=== PATIENT | female | born 1955 | race Caucasian/White ===

== ENCOUNTER 2016-11-20 22:37 | Emergency (ER) | payer BC, SELFPAY ==
[~2016-11-20] VITALS: Ht 154.9 cm; Wt 51.0 kg
[2016-11-21 00:12] VITALS: BP 122/68
== END 2016-11-21 00:14 | disposition home or self-care (01) ==
LOC: ED 11-21 00:08
DX: R07.89 Other chest pain (principal); F41.1 Generalized anxiety disorder; F17.210 Nicotine dependence, cigarettes, uncomplicated
CPT/HCPCS: 93005; 99283

== ENCOUNTER → 2017-07-27 | Outpatient (CLI) | payer BC | END | disposition home or self-care (01) | LOC: CFH 09:44 | PROVIDERS: ATTEND Genetic Counselor, MS | DX: Z12.2 Encounter for screening for malignant neoplasm of respiratory organs (principal); R91.1 Solitary pulmonary nodule; F17.210 Nicotine dependence, cigarettes, uncomplicated | CPT/HCPCS: G0297 ==

== ENCOUNTER 2018-08-14 20:26 | Observation (INO) | payer OTHER ==
[~2018-08-14] VITALS: Ht 152.4 cm; Wt 49.5 kg
--- NOTE | 2018-08-14 20:39 | NUR ---
PT BIB [facility] WITH C/O CHEST PAIN SINCE 7 PM, WITH SOB WHILE SITTING ON COUCH WATCHING TV,PT TOOK [facility] 324 AT HOME INSTRUCTED BY CHERYLE KEARNS CP AT THIS TIME
--- NOTE | 2018-08-14 20:51 | NUR ---
pt reports heavy cp at thids time pa at bed side ekg in process
[2018-08-14] MEDS ORDERED: MAALOX/HYOSCYAMINE/LIDOCAINE 45 ML BTL PO ONE (21:00)
[2018-08-14] MEDS ORDERED: ONDANSETRON 2MG/ML, 2ML IVPush ONE (21:00)
[2018-08-14] MEDS ORDERED: NITROGLYCERIN OINT 2%, 1GM TP ONE ×2 (21:00→21:14)
[2018-08-14 21:06] LABS: BASOPHILS # (AUTO) 0.06 x10^3/uL (0-0.1); BASOPHILS % (AUTO) 1 % (0-1); EOSINOPHILS # (AUTO) 0.06 x10^3/uL (0-0.4); EOSINOPHILS % (AUTO) 1 % (1-7); LYMPHOCYTES % (AUTO) 35 % (22-44); MD NO; MEAN CORPUSCULAR HEMOGLOBIN 31.7 pg (27.0-34.8); MEAN CORPUSCULAR HGB CONC 34.8 g/dL (32.4-35.8); MEAN CORPUSCULAR VOLUME 91.2 fL (80-100); MEAN PLATELET VOLUME 7.2 fL (7.4-10.4); MONOCYTES # (AUTO) 0.47 x10^3/uL (0.2-0.8); MONOCYTES % (AUTO) 7 % (2-9); NEUTROPHILS # (AUTO) 4.11 x10^3/uL (1.8-6.8); NEUTROPHILS % (AUTO) 57 % (42-75); PLATELET COUNT 189 x10^3/uL (130-400); RED BLOOD COUNT 4.53 x10^6/uL (3.82-5.3); RED CELL DISTRIBUTION WIDTH 12.8 % (9.6-15.2)
[2018-08-14] MEDS ORDERED: ONDANSETRON 2MG/ML, 2ML ONE (21:14)
[2018-08-14] MEDS ORDERED: MORPHINE SULFATE 4 MG/ML, 1ML ONE (21:14)
[2018-08-14] MEDS ORDERED: MAALOX/HYOSCYAMINE/LIDOCAINE 45 ML BTL ONE (21:14)
[2018-08-14] MEDS: MORPHINE SULFATE 4 MG/ML, 1ML IVPush PRN ×2 (21:17→21:18)
[2018-08-14 21:18] LABS: ALANINE AMINOTRANSFERASE 18 U/L (12-78); ALBUMIN 3.5 g/dL (3.4-5.0); ANION GAP 8 mmol/L (5-15); CALCIUM 8.4 mg/dL (8.5-10.1); CHLORIDE 110 mmol/L (98-107); CREATININE 0.91 mg/dL (0.55-1.02)
[2018-08-14 21:23] LABS: ALKALINE PHOSPHATASE 95 U/L (45-117); BILIRUBIN,TOTAL 0.2 mg/dL (0.2-1.0); TOTAL PROTEIN 6.6 g/dL (6.4-8.2); TROPONIN I < 0.015 ng/mL (0.000-0.045)
--- NOTE | 2018-08-14 21:26 | NUR ---
medicated per md order
--- NOTE | 2018-08-14 21:43 | NUR ---
REPORT FROM ROMY PAREKH.
[2018-08-14] MEDS ORDERED: SODIUM CHLORIDE 0.9% 1,000 ML IV SCH (22:25)
[2018-08-14] MEDS ORDERED: NITROGLYCERIN 0.4 MG BOTTLE (25 TABS) SL PRN (22:30)
[2018-08-14] MEDS ORDERED: hydrALAzine 20 MG/ML, 1ML IVPush PRN (22:30)
[2018-08-14] MEDS ORDERED: ACETAMINOPHEN 325 MG TABLET PO PRN (22:30)
--- NOTE | 2018-08-14 22:38 | NUR ---
PT TO RESTROOM WITH STEADY GAIT AND BACK TO BED. PT SO AT BEDSIDE. PT AWAITING ROOM ASSIGNMENT. NO S/SX OF DISCOMFORT NOTED. PT CONTINUES ON CARDIAC AND VS MONITORING. NO DISTRESS NOTED. CALL LIGHT IN REACH.
[2018-08-14] MEDS ORDERED: FIOROCET (23:24)
[2018-08-14] MEDS ORDERED: SERT100T PO (23:24)
[2018-08-14] MEDS ORDERED: ESOM20CA PO (23:24)
[2018-08-14] MEDS ORDERED: ALPR-475 PO (23:24)
--- NOTE | 2018-08-14 23:24 | NUR ---
PT RESTING IN BED, SITTING UP AND WATCHING TV. PT CONVERSES WELL, PLEASANT AND COOPERATIVE. VSS. PT AWAITING ROOM ASSIGNMENT. CALL LIGHT IN REACH.
[2018-08-14 23:29] LABS: TROPONIN I < 0.015 ng/mL (0.000-0.045)
--- NOTE | 2018-08-14 23:34 | NUR ---
REPORT TO ELKIN PAREKH. PT TO GO TO ROOM.
[2018-08-15 00:21] VITALS: BP 122/70
[2018-08-15] MEDS: MORPHINE SULFATE 4 MG/ML, 1ML IVPush PRN (00:27)
[2018-08-15 01:06] VITALS: BP 122/70
[2018-08-15 04:35] VITALS: BP 122/70
[2018-08-15 06:23] LABS: TROPONIN I < 0.015 ng/mL (0.000-0.045)
[2018-08-15] MEDS ORDERED: PANTOPROZOLE 40MG TABLET PO SCH (07:30)
[2018-08-15] MEDS ORDERED: REGADENOSON 0.4 MG/5 ML SYRINGE ONE (08:43)
[2018-08-15 08:57] VITALS: BP 115/67
[2018-08-15] MEDS ORDERED: SERTRALINE 100MG TABLET PO SCH (09:00)
[2018-08-15] MEDS ORDERED: BUTALB/APAP/CAFFEINE 50MG/325MG/40MG ONE (13:08)
[2018-08-15] MEDS ORDERED: BUTALB/APAP/CAFFEINE 50MG/325MG/40MG PO ONE (13:30)
[2018-08-15 14:56] VITALS: BP 148/78
== END 2018-08-15 16:40 | disposition home or self-care (01) ==
LOC: ED 20:47 → SUATTDRO 22:21 → EDIP 22:25 → 5SO 08-15 00:04 → DCLOUNGE 08-15 16:35
PROVIDERS: ADMIT Hospitalist; ATTEND Hospitalist
DX: R07.89 Other chest pain (principal); F32.9 Major depressive disorder, single episode, unspecified; F41.9 Anxiety disorder, unspecified; K21.9 Gastro-esophageal reflux disease without esophagitis; J44.9 Chronic obstructive pulmonary disease, unspecified; F17.210 Nicotine dependence, cigarettes, uncomplicated; F41.0 Panic disorder [episodic paroxysmal anxiety]; Z82.49 Family history of ischemic heart disease and other diseases of the circulatory system; Z88.2 Allergy status to sulfonamides; Z88.8 Allergy status to other drugs, medicaments and biological substances
CPT/HCPCS: 36415; 71046; 78452; 80053; 83735; 84484; 85025; 85379; 93005; 93017; 96374; 96375; 99284; A9502; C9898; G0378; J2405; J2785; J7030